=== PATIENT | male | born 1945 | race African-American/Black ===

== ENCOUNTER 2019-04-18 19:28 | Emergency (ER) | payer OTHER ==
[~2019-04-18] VITALS: Ht 180.3 cm; Wt 75.3 kg
[2019-04-18 19:30] VITALS: BP 110/74; TEMP 98.4
[2019-04-18 19:48] LABS: PLATELET COUNT 299 K/uL (142-355)
[2019-04-18 19:57] LABS: POTASSIUM 4.2 mmol/L (3.6-5.2)
[2019-04-18] MEDS ORDERED: AMANTADINE100 MG PO (22:37)
[2019-04-18] MEDS ORDERED: DIVALPROEX250 M1 PO (22:39)
[2019-04-18] MEDS ORDERED: DONE5TAB PO (22:41)
[2019-04-18] MEDS ORDERED: ESCITALOPRAM10 MG PO (22:42)
[2019-04-18] MEDS ORDERED: GABA400C2 PO (22:43)
[2019-04-18] MEDS ORDERED: RANI150T78 PO (22:45)
[2019-04-18] MEDS ORDERED: VENTOLIN 90MCG (22:49)
== END 2019-04-18 21:05 | disposition other institution (70) ==
LOC: ED 19:28
PROVIDERS: Family Medicine
DX: F03.91 Unspecified dementia, unspecified severity, with behavioral disturbance (principal); Z04.6 Encounter for general psychiatric examination, requested by authority
CPT/HCPCS: 80053; 85027; 93005; 99285